=== PATIENT | female | born 1985 | race Caucasian/White ===

== ENCOUNTER 2022-01-20 12:18 | Emergency (ER) | payer OTHER, SELFPAY ==
--- NOTE | ~2022-01-20 | US_ITS ---
EXAMINATION: US abdomen limited DATE: 01/20/2022 18:07 INDICATION: RUQ pain, elevated tbilli TECHNIQUE: Multiple grayscale and Doppler ultrasound images of limited portions of the abdomen were o btained. COMPARISON: None available. FINDINGS: The visualized portions of the pancreas are normal. The liver is mildly enlarged with incre ased echogenicity and normal echotexture. No surface nodularity. Normal hepatopetal flow in the main portal vein. Multiple gallstones. 4 mm thick gallbladder wall. The common bile duct measures 4 mm. Th ere was no sonographic Pavon sign. IMPRESSION: Cholelithiasis and gallbladder wall thickening. No pericholecystic fluid. Negative sonographic Pvaon sign. Reviewed, dictated and finalized at location [facility] [employer] IMPRESSION: Cholelithiasis and gallbladder wall thickening. No pericholecystic fluid. Negat debbie sonographic Pavon sign.
[2022-01-20 12:24] VITALS: BP 154/106; PULSE 81; RESP 18; TEMP 36.8; O2SAT 100
[2022-01-20 12:35] LABS: Basophils Absolute Auto 0.1 K/mm3 (0.0-0.1); Basophils Percent Auto 0.9 % (0.2-1.2); Eosinophils Absolute Auto 0.1 K/mm3 (0-0.3); Eosinophils Percent Auto 1.3 % (0-4.4); Hematocrit 42.5 % (37.0-47.0); Hemoglobin 13.6 g/dL (12.0-15.0); Immature Granulocyte Absolute 0.02 K/mm3 (0.00-0.031); Immature Granulocyte Percent A 0.4 % (0-0.5); Lymphocytes Absolute Auto 0.91 K/mm3 (0.9-3.2); Lymphocytes Percent Auto 16.7 % (18.3-44.2); Mean Corpuscular Hemoglobin 26.3 pg (26-34); Mean Corpuscular Volume 82.2 fl (80-100); Mean Platelet Volume 10.1 fl (7.4-10.4); Monocytes Absolute Auto 0.4 K/mm3 (0.1-0.6); Neutrophils Percent Auto 73.7 % (45.5-73.1); Platelet Count Result 294 k/mm3 (150-375); Red Blood Count 5.17 M/mm3 (4.2-5.4); Red Cell Distribution Width 14.5 % (11.5-14.5); White Blood Count 5.4 K/mm3 (4.5-10.0)
[2022-01-20 12:44] LABS: Appearance Urine Clear (Clear); Bilirubin Urine 1+ (Negative); Blood Urine Negative (Negative); Color Urine Yellow (Yellow); Glucose Urine UA Negative (Negative); Ketones Urine Negative (Negative); Leukocyte Esterase Ur Negative LEU/UL (Negative); Nitrate Urine Negative (Negative); Protein Urine Trace mg/dL (Negative); Specific Grav Ur 1.015 (1.001-1.035); pH Urine 6.5 (5.0-9.0)
[2022-01-20 12:44] LABS: Alanine Aminotransferase 344 U/L (6-35); Albumin Level 4.3 g/dL (3.5-5.1); Alkaline Phosphatase 116 U/L (38-126); Anion Gap 8 mmol/L (8-16); Aspartate Amino Transferase 336 U/L (14-36); Bilirubin,Total 1.9 mg/dL (0.2-1.3); Blood Urea Nitrogen 12 mg/dL (7-17); Carbon Dioxide 24 mmol/L (22-30); Chloride 106 mmol/L (98-107); Estimated CRCL calculation 113 ml/min; Estimated Glomerular Filt Rate > 60; Glucose 104 mg/dL (65-110); Lipase 77 U/L (23-300); Sodium 138 mmol/L (137-145)
[2022-01-20 12:53] LABS: Mucus Urine Rare /lpf; RBC Urine 0-2 /hpf (0-2); Squamous Epithelial Cell Urine Moderate /hpf (Few)
[2022-01-20 12:54] LABS: Add Urine Microscopic? YES
[2022-01-20 15:15] VITALS: BP 149/111; O2SAT 99
[2022-01-20 15:16] VITALS: O2SAT 99
[2022-01-20 15:17] VITALS: BP 142/90; O2SAT 100
--- NOTE | 2022-01-20 17:33 | ED.ABDPAIN ---
HPI - Abdominal Pain General Chief Complaint: Abdominal Pain Stated Complaint: abd pain Time Seen by Provider: 01/20/22 15:12 History of Present Illness HPI narrative: 36-year-old female presented to the emergency department for evaluation of intermittent right upper quadrant pain. Patient states for the last few years she has had issues that she had attributed to her gallbladder. Patient states the issue is usually triggered by alcohol or greasy foods. Patient states that she has had 2 attacks within the last 12 hours. Related Data Allergies Allergy/AdvReac Type Severity Reaction Status Date / Time No Known Allergies Allergy Verified 01/20/22 12:21 Review of Systems Review of Systems: CONSTITUTIONAL: Denies fever, chills, or sweats. EYES: Denies visual changes, redness, or discharge. ENT: Denies rhinorrhea, congestion, sore throat, or otalgia. CARDIOVASCULAR: Denies chest pain, palpitations, or edema. RESPIRATORY: Denies cough or dyspnea. GASTROINTESTINAL: Epigastric abdominal pain GENITOURINARY: Denies dysuria or hematuria. SKIN: Denies rash or itching. MUSCULOSKELETAL: Denies back pain, joint pain, or myalgia. NEUROLOGIC: Denies headache, numbness, or weakness. Exam Narrative: APPEARANCE: Well appearing, no pain, no distress, well-nourished. HEAD: normocephalic, atraumatic. EYES: PERRLA/EOMI, conjunctivae clear. NOSE: Normal no drainage EARS:TMS clear with good light reflex. THROAT: Pharynx clear, no exudate. NECK: Supple. No adenopathy, no masses. RESPIRATORY: Airway patent, respirations nonlabored. Clear to auscultation bilaterally, no rales, rhonchi, wheezing. CARDIOVASCULAR: Regular rate and rhythm without murmurs rubs or gallops. ABDOMINAL: Mild epigastric pain but no upper quadrant tenderness to palpation MUSCULOSKELETAL: Moves all extremities. Strength/ROM intact, No edema, No calf tenderness. NEURO: Alert. Cranial nerves II through XII intact. Grossly intact SKIN: Warm, dry. Normal Color Course Course Emergency Course: Patient declined medications for pain control. Patient is pain-free on reexamination. Patient has no reproducible tenderness to palpation. Patient is afebrile with no leukocytosis. Patient does have minor elevation of her T bili and transaminases. Ultrasound showed evidence of cholelithiasis. Patient with was provided a surgical follow-up and was advised to follow a bland diet. All question concerns were addressed. Patient was comfortable with the plan for discharge and follow-up. Vital Signs Vital signs: Vital Signs Temperature 98.2 F 01/20/22 12:24 Pulse Rate 81 01/20/22 12:24 Respiratory Rate 18 01/20/22 12:24 Blood Pressure 154/106 H 01/20/22 12:24 Pulse Oximetry 100 01/20/22 12:24 Temperature 98.2 F 01/20/22 12:24 Pulse Rate 70 01/20/22 19:50 Respiratory Rate 16 01/20/22 19:50 Blood Pressure 150/98 H 01/20/22 19:50 Pulse Oximetry 100 01/20/22 19:50 MDM - Abdominal Pain Lab Data Attestation: I reviewed the patient's lab results. Result diagrams: 01/20/22 12:28 01/20/22 12:28 Labs: Lab Results 01/20/22 01/20/22 01/20/22 Range/Units 12:28 12:28 12:31 WBC 5.4 (4.5-10.0) K/mm3 RBC 5.17 (4.2-5.4) M/mm3 Hgb 13.6 (12.0-15.0) g/dL Hct 42.5 (37.0-47.0) % MCV 82.2 (80-100) fl MCH 26.3 (26-34) pg MCHC 32.0 (32-36) g/dl RDW 14.5 (11.5-14.5) % Plt Count 294 (150-375) k/mm3 MPV 10.1 (7.4-10.4) fl Immature Gran % (Auto) 0.4 (0-0.5) % Neut % (Auto) 73.7 H (45.5-73.1) % Lymph % (Auto) 16.7 L (18.3-44.2) % Hughes % (Auto) 7.0 (2.6-8.5) % Eos % (Auto) 1.3 (0-4.4) % Baso % (Auto) 0.9 (0.2-1.2) % Lymph # (Auto) 0.91 (0.9-3.2) K/mm3 Hughes # (Auto) 0.4 (0.1-0.6) K/mm3 Eos # (Auto) 0.1 (0-0.3) K/mm3 Baso # (Auto) 0.1 (0.0-0.1) K/mm3 Abs Immat Gran (auto) 0.02 (0.00-0.031) K/mm3 Absolute Neuts (auto) 4.0 (1.
[2022-01-20] MEDS: SODIUM CHLORIDE 0.9% IV 1,000 ML 999 ML IV CONT (18:09)
[2022-01-20] MEDS: ONDANSETRON INJ 4 MG/2 ML VIAL IV PUSH (18:09)
[2022-01-20 19:50] VITALS: BP 150/98; PULSE 70; RESP 16; O2SAT 100
== END 2022-01-20 19:50 | disposition home or self-care (01) ==
PROVIDERS: Emergency Medicine; Emergency Provider Emergency Medicine
DX: K80.50 Calculus of bile duct without cholangitis or cholecystitis without obstruction (principal)
CPT/HCPCS: 36415; 76705; 80053; 81001; 83690; 85025; 96374; 99284; J2405; J7030